=== PATIENT | male | born 1990 ===

== ENCOUNTER 2018-11-11 19:27 | Emergency (ER) | payer SELFPAY ==
[2018-11-11 19:27] VITALS: BMI 23.0
[2018-11-11] MEDS ORDERED: Sodium Chloride 0.9% 1,000 ML IV ONE (20:07)
--- NOTE | 2018-11-11 20:07 | C.PDOC ---
History Of Present Illness The patient presents to the ED for evaluation of nausea, vomiting and abdominal pain which began at around 1400 today. Patient states his symptoms began after eating two hotdogs and an oily egg roll. Patient denies fever, chills. Time Seen by Provider: 11/11/18 20:06 Chief Complaint (Nursing): Abdominal Pain History Per: Patient History/Exam Limitations: no limitations Onset/Duration Of Symptoms: Hrs Current Symptoms Are (Timing): Still Present Location Of Pain/Discomfort: Diffuse Quality Of Discomfort: "Pain" Associated Symptoms: Nausea, Vomiting Additional History Per: Patient Past Medical History Reviewed: Historical Data, Nursing Documentation, Vital Signs Vital Signs: Last Vital Signs Temp 97.5 F L 11/11/18 19:35 Pulse 62 11/11/18 19:35 Resp 22 11/11/18 19:35 BP 128/65 11/11/18 19:35 Pulse Ox 100 11/11/18 19:35 Primary Care Provider: Non [facility] Provider, - Medical History PMH: No Chronic Diseases Surgical History: No Surg Hx Family History: States: Unknown Family Hx - Social History Hx Tobacco Use: Yes (some days) Hx Alcohol Use: No Hx Substance Use: No - Immunization History Hx Influenza Vaccination: No Review Of Systems Constitutional: Negative for: Fever, Chills Gastrointestinal: Positive for: Nausea, Vomiting, Abdominal Pain Physical Exam - Physical Exam Appears: Non-toxic, No Acute Distress Skin: Warm, Dry Head: Normacephalic Oral Mucosa: Moist Neck: Supple Chest: Symmetrical, No Deformity Cardiovascular: Rhythm Regular, No Murmur Respiratory: No Rales, No Rhonchi, No Wheezing Gastrointestinal/Abdominal: Bowel Sounds (tympanic ), Soft, Tenderness (mild, d iffuse ), No Guarding, No Rebound Extremity: Normal ROM, Capillary Refill (less than 2 seconds ) Neurological/Psych: Oriented x3, Normal Speech, Normal Cognition ED Course And Treatment - Laboratory Results Result Diagrams: 11/11/18 20:23 11/11/18 20:23 O2 Sat by Pulse Oximetry: 100 (on RA ) Pulse Ox Interpretation: Normal Progress Note: Bloodwork and urinalysis ordered and reviewed. Protonix IVP, Tor adol IVP, Zofran IVP and IV Fluids given. Reevaluation Time: 21:37 Reassessment Condition: Improved Medical Decision Making Medical Decision Making: Upon provider reevaluation patient is feeling better, is medically stable, and requires no further treatment in the ED at this time. Patient will be discharged home with Rx for zofran, protonix. Counseling was provided and all questions were answered regarding diagnosis and need for follow up with the referred clinic. There is agreement to discharge plan. Return if symptoms persist or worsen. Disposition Counseled Patient/Family Regarding: Studies Performed, Diagnosis, Need For Followup, Rx Given - Disposition Referrals: [facility] [Outside] [facility] [Outside] Disposition: HOME/ ROUTINE Disposition Time: 20:07 Condition: FAIR Additional Instructions: Please return if symptoms recur Prescriptions: Ondansetron ODT [Zofran ODT] 1 odt PO BID PRN #6 odt PRN Reason: Nausea/Vomiting Pantoprazole Sodium [Protonix] 40 mg PO DAILY #14 ect Instructions: Nausea and Vomiting, Adult (DC), Food Poisoning (DC) Forms: [employer] (Macedonian) - Clinical Impression Clinical Impression: Nausea, Vomiting, Food poisoning - Scribe Statement The provider has reviewed the documentation as recorded by the Scribe (Fiordaliza Mccloud) Provider Attestation: All medical record entries made by the Scribe were at my direction and personally dictated by me. I have reviewed the chart and agree that the record accurately reflects my personal performance of the history, physical exam, medical decision making, and the department course for this patient. I have also personally directed, reviewed, and agree with the discharge instructions and disposition.
[2018-11-11] MEDS ORDERED: Sodium Chloride 0.9% 1,000 ML ONE (20:27)
[2018-11-11 20:36] LABS: BASO % 0.2 % (0.0-2.0); EOS % 0.3 % (0.0-4.0); HEMOGLOBIN 15.9 g/dL (12.0-18.0); LYMPH # 1.8 K/uL (1.0-4.3); LYMPH % 15.5 % (20.0-40.0); MEAN CELL VOLUME 91.7 fL (80.0-94.0); MEAN CORPUSCULAR HEMOGLOBIN 31.4 pg (27.0-31.0); MEAN CORPUSCULAR HGB CONC 34.2 g/dL (33.0-37.0); MEAN PLATELET VOLUME 8.7 fL (7.2-11.7); MONO # 0.7 K/uL (0.0-0.8); MONO % 5.7 % (0.0-10.0); NEUT # 9.2 K/uL (1.8-7.0); NEUT % 78.3 % (50.0-75.0); RBC 5.08 Mil/uL (4.40-5.90); RED CELL DISTRIBUTION WIDTH 12.6 % (11.5-14.5); WHITE BLOOD COUNT 11.7 K/uL (4.8-10.8)
[2018-11-11 20:38] LABS: URINE BILIRUBIN NEGATIVE (NEGATIVE); URINE BLOOD NEGATIVE (NEGATIVE); URINE CLARITY Clear (Clear); URINE COLOR Yellow (YELLOW); URINE GLUCOSE (UA) NORMAL (Normal); URINE LEUKOCYTE ESTERASE NEG Leu/uL (Negative); URINE PROTEIN NEGATIVE (NEGATIVE); URINE UROBILINOGEN NORMAL mg/dL (0.2-1.0)
[2018-11-11 20:47] LABS: ALB/GLOB RATIO 1.3 (1.0-2.1); ALT/SGPT 41 U/L (21-72); AST/SGOT 43 U/L (17-59); BLOOD UREA NITROGEN 16 mg/dL (9-20); CALCIUM 9.9 mg/dl (8.6-10.4); GFR NON-AFRICAN AMERICAN > 60; LIPASE 102 U/L (23-300)
[2018-11-11 21:57] VITALS: BP 135/76; PULSE 57; RESP 18; TEMP 97.7; O2SAT 99
== END 2018-11-11 21:56 | disposition home or self-care (01) ==
LOC: C.ER 19:27
DX: T62.91XA Toxic effect of unspecified noxious substance eaten as food, accidental (unintentional), initial encounter (principal); R11.2 Nausea with vomiting, unspecified
CPT/HCPCS: 80053; 81001; 83690; 85025; 96361; 96374; 96375; 99284; C9113; J1885; J2405; J7030